=== PATIENT | female | born 1985 | race Caucasian/White ===

== ENCOUNTER 2023-07-30 09:13 | Emergency (ER) | payer MEDICAID, SELFPAY ==
[2023-07-30 09:20] VITALS: BP 108/77; PULSE 70; TEMP 36.6; O2SAT 98; BMI 34.2
--- NOTE | 2023-07-30 09:23 | XR_ITS ---
The [address] [address] Patient Name: SALAS OLEA MRN: [id number] date: 1985 Sex: F Assigned Patient Location: ER Current Patient Location: ED.MAIN Accession/Order Number: [id number] Exam Date: 07/30/2023 09:40 Report Date: 07/30/2023 09:54 At the request of: NICOLAS PRINCE Procedure: XR chest 2V EXAMINATION: XR chest 2V HISTORY: upper back pain COMPARISON: No relevant comparison available. TECHNIQUE: PA and lateral FINDINGS: LUNGS: No significant pulmonary parenchymal abnormalities. VASCULATURE: No increased pulmonary vasculature. PLEURA: No pneumothorax, effusion, or pleural thickening. CARDIAC: No cardiomegaly or cardiac silhouette abnormality. MEDIASTINUM: No visible mass or adenopathy. BONES: No fracture or visible bone lesion. OTHER: Negative. XR/XR chest 2V IMPRESSION: No acute cardiopulmonary process Electronically authenticated by: SARAH PRABHAKAR Date: 07/30/2023 09:54
--- NOTE | 2023-07-30 09:23 | ECG_ITS ---
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
[2023-07-30 09:28] VITALS: PULSE 68
--- NOTE | 2023-07-30 10:16 | ED_ITS ---
HPI HPI - General Adult General Chief complaint: Extremity Injury, Upper Stated complaint: LEFT SHOULDER PAIN Time Seen by Provider: 07/30/23 09:19 Source: patient Mode of arrival: walk-in Limitations: no limitations History of Present Illness HPI narrative: 37-year-old female to the emergency department with chief complaint of left- sided upper back pain. Patient reports she has pain worse with movement of her upper extremity in her upper back. Has been ongoing for 2-3 days. There is no associated numbness or weakness, tingling. Occasionally she gets sharp shooting pains down her arm. No exertional component. No shortness of breath. No chest pain. The Character of the pain is sharp. No falls or injuries. She denies . Related Data Previous Rx's ?Medication ?Instructions ?Recorded cyclobenzaprine 10 mg tablet 10 mg PO BID PRN muscle spasm #10 07/30/23 tabs methylprednisolone 4 mg tablets in 4 mg PO DAILY #21 ea 07/30/23 a dose pack (Medrol (Dave)) Allergies Allergy/AdvReac Type Severity Reaction Status Date / Time Penicillins Allergy Severe Anaphylaxis Verified 07/30/23 09:20 Opioid HPI Opioid Management Most Recent Opioid Data: Last Pain Scale 7 07/30/23 09:31 Review of Systems ROS Status of ROS 10 or more systems reviewed and unremark able except as noted in history and below Exam Narrative Exam Narrative: VITALS: I have reviewed the triage vital signs. GENERAL: Well developed, well appearing adult in no acute distress. NEURO: Alert and oriented. Moves all extremities. Face is symmetric and expressive. EYES: PERRL. No scleral icterus or conjunctival injection. No discharge. HENT: Normocephalic, atraumatic. Hearing is grossly intact. Nares grossly patent and without discharge. Mucous membranes moist. NECK: No JVD. Patient moves neck without restriction. CARDIO: Rhythm regular. Normal rate. No murmur, rub, or gallop. Pulses equal bilaterally in the upper and lower extremity. No lower extremity edema. PULM: Lungs clear to auscultation in all germain. No wheezes, rales, or rhonchi. No conversational dyspnea. No splinting, stridor, or accessory muscle use. EXTREMITIES: Symmetric muscle bulk. No joint swelling. No clubbing, cyanosis, or deformity. Increased tone and some tenderness in the upper trapezius on the left. SKIN: Warm and dry. Normal turgor. No rash or lesions appreciated. PSYCH: Mood, affect, and interaction is appropriate to the setting. Constitutional Vital Signs, click to edit/add: Last Vital Signs Temp 98 F 07/30/23 09:20 Pulse 70 07/30/23 09:20 Resp 16 07/30/23 09:20 BP 108/77 07/30/23 09:20 Pulse Ox 98 07/30/23 09:20 O2 Del Method Room Air 07/30/23 09:20 Course Vital Signs Vital signs: Vital Signs Temperature 98 F 07/30/23 09:20 Pulse Rate 70 07/30/23 09:20 Respiratory Rate 16 07/30/23 09:20 Blood Pressure 108/77 07/30/23 09:20 Pulse Oximetry 98 07/30/23 09:20 Oxygen Delivery Method Room Air 07/30/23 09:20 Temperature 98 F 07/30/23 09:20 Pulse Rate 70 07/30/23 09:20 Respiratory Rate 16 07/30/23 09:20 Blood Pressure 108/77 07/30/23 09:20 Pulse Oximetry 98 07/30/23 09:20 Oxygen Delivery Method Room Air 07/30/23 09:20 Medical Decision Making MDM Narrative Medical decision making narrative: 37-year-old female to the emergency department complaining of left-sided back pain. Medical stable, the patient is afebrile. Clinically there is increased tone and tenderness in the left upper trap muscle. Pain is exacerbated by movement of the left upper extremity or shrugging shoulders.Left upper extremity is neurovascularly intact. Cardiopulmonary examination is unremarkable. Chest x- ray and EKG are ordered. Patient agrees with this plan. Chest x-ray and EKG are without acute findings. Discuss treatment plan the patient. Medrol Dosepak, Zyrtec, she'll continue taking ibuprofen as needed home. She declines any medication here That she intends to drive home. Return precautions were discussed. All questions were answered. The patient was discharged home. Medical Records Medical records reviewed: Yes I reviewed the patient's medical records Imaging Data Chest x-ray: Attestation: I have reviewed the pertinent imaging results. Radiologist's impression: ITS Impressions Chest X-Ray 07/30/23 09:23 IMPRESSION: No acute cardiopulmonary process Electronically authenticated by: SARAH PRABHAKAR Date: 07/30/2023 09:54 ECG Data Attestation: I personally reviewed and interpreted this ECG as follows: (Normal sinus rhythm at a rate of 68. QTC 395. No STEMI.) Discharge Plan Discharge Stand Alone Forms: Portal Instructions Chief Complaint: Extremity Injury, Upper Clinical Impression: Muscle strain Patient Disposition: Home, Self-Care Time of Disposition Decision: 10:11 Condition: Good Mode of Transportation: Private Vehicle Prescriptions / Home Meds: New cyclobenzaprine 10 mg tablet 10 mg PO BID PRN (Reason: muscle spasm) Qty: 10 0RF methylprednisolone [Medrol (Dave)] 4 mg tablets,dose pack 4 mg PO DAILY Qty: 21 0RF Rx Instructions: TAKE PER DOSEPAK INSTRUCTIONS Print Language: Jordanian Instructions: Back Pain (ED) Additional Instructions: Follow-up with your doctor in the next week to ensure that your symptoms are resolved. Should your symptoms worsen or he develop chest pain, shortness of breath, numbness, weakness, tingling return to the emergency department immediately for evaluation. Referrals: Physician,Non-Staff, MD [Primary Care Provider] - 1 week
[2023-07-30 10:37] VITALS: BP 102/68; PULSE 69; O2SAT 97
== END 2023-07-30 10:41 | disposition home or self-care (01) ==
PROVIDERS: Emergency Provider Student in an Organized Health Care Education/Training Program
DX: T14.8XXA Other injury of unspecified body region, initial encounter (principal)
CPT/HCPCS: 71046; 93005; 99284

== ENCOUNTER 2024-04-13 08:42 | Emergency (ER) | payer MEDICAID, SELFPAY ==
[2024-04-13 08:51] VITALS: BP 131/78; PULSE 79; TEMP 37.3; O2SAT 96; BMI 34.4
--- NOTE | 2024-04-13 09:08 | XR_ITS ---
[address] [address] Patient Name: SALAS OLEA MRN: [id number] date: 1985 Sex: F Assigned Patient Location: ER Current Patient Location: ER Accession/Order Number: [id number] Exam Date: 04/13/2024 09:15 Report Date: 04/13/2024 09:31 At the request of: CHANO MOORE Procedure: XR chest 1V EXAM: XR chest 1V HISTORY: cough COMPARISON: None FINDINGS/IMPRESSION: 1. Lungs are clear 2. No pneumothorax. No pleural effusion. 3. Heart size and mediastinal contours are normal 4. No acute osseous abnormality. 5. Upper abdominal bowel gas pattern is nonspecific. Electronically authenticated by: DINORA HITCHCOCK Date: 04/13/2024 09:31
--- NOTE | 2024-04-13 09:27 | ED.GENADUL1 ---
HPI HPI - General Adult General Chief complaint: Upper Respiratory Infection Stated complaint: COUGH Time Seen by Provider: 04/13/24 09:00 Source: patient Mode of arrival: walk-in Limitations: no limitations History of Present Illness HPI narrative: Patient has been exposed to her daughter who have similar symptoms and she was diagnosed with flu, is coming to us with a coughing and chest congestion No difficulty breathing no other complaints Related Data Previous Rx's ?Medication ?Instructions ?Recorded guaifenesin 600 mg tablet, 600 mg PO Q12H PRN cough #10 tabs 04/13/24 extended release 12 hr (Mucinex) Allergies Allergy/AdvReac Type Severity Reaction Status Date / Time Penicillins Allergy Severe Anaphylaxis Verified 04/13/24 08:51 Opioid HPI Opioid Management Most Recent Opioid Data: Last Pain Scale 7 07/30/23 09:31 07/30/23 Review of Systems ROS Status of ROS 10 or more systems reviewed and unremarkable except as noted in history and below PFSH PFSH Social History Little interest or pleasure in doing things: not at all Feeling down, depressed, or hopeless: not at all Exam Narrative Exam Narrative: Nurses notes and vital signs reviewed and patient is not hypoxic. General: Well-appearing and in no apparent distress. Skin: Warm, dry, no pallor noted. No rash. Head: Normocephalic, atraumatic. Neck: Supple, non-tender. Eye: Pupils are equal, round and EOMI. No scleral icterus. Ears, Nose, Mouth, and Throat: TM are clear, no nasal mucosal hypertrophy. Oral mucosa is moist, no posterior oropharynx erythema, uvula is mid-line Cardiovascular: Regular Rate and Rhythm without murmur, gallop or rub. Respiratory: Mild decrease in air entry in the right side compared to the left Lungs are clear to auscultation, no wheezing, rales or rhonchi Chest Wall: no tenderness Back: No midline thoracic or lumbar vertebral tenderness. No CVA tenderness Musculoskeletal: normal ROM, no calf or popliteal tenderness, no lower extremity edema/swelling GI: Abdomen is soft, non-distended. Normal bowel sounds. No masses appreciated. No tenderness to palpation. No rebound, guarding, or rigidity noted. Neurological: A&O x4. No cranial nerve dysfunction observed. No truncal ataxia. Moves all extremities. Sensation intact. Psychiatric: Cooperative and interactive. Normal mood and affect. Constitutional Vital Signs, click to edit/add: Last Vital Signs Temp 99.1 F 04/13/24 08:51 Pulse 79 04/13/24 08:51 Resp 18 04/13/24 08:51 BP 131/78 04/13/24 08:51 Pulse Ox 96 04/13/24 08:51 O2 Del Method Room Air 04/13/24 08:51 Course Vital Signs Vital signs: Vital Signs Temperature 99.1 F 04/13/24 08:51 Pulse Rate 79 04/13/24 08:51 Respiratory Rate 18 04/13/24 08:51 Blood Pressure 131/78 04/13/24 08:51 Pulse Oximetry 96 04/13/24 08:51 Oxygen Delivery Method Room Air 04/13/24 08:51 Temperature 99.1 F 04/13/24 08:51 Pulse Rate 79 04/13/24 08:51 Respiratory Rate 18 04/13/24 08:51 Blood Pressure 131/78 04/13/24 08:51 Pulse Oximetry 96 04/13/24 08:51 Oxygen Delivery Method Room Air 04/13/24 08:51 Medical Decision Making MDM Narrative Medical decision making narrative: Just to decrease in auscultation on the right side the patient had an x-ray of the chest showing no acute pathology Presentation mostly secondary to bronchitis she will just continue supportive care at home because of her exposure to her daughter have flu she mostly have flu too She already denied taking Tamiflu for her daughter and that goes for her too The patient is to follow up with primary care physician in next 2-3 days or to return to the emergency department should any of the signs or symptoms worsen or new symptoms develop. The patient agrees with the following Diagnosis and Treatment plan and the patient will be discharged home. Discharge Plan Discharge Chief Complaint: Upper Respiratory Infection Clinical Impression: Flu, Bronchitis Patient Disposition: Home, Self-Care Time of Disposition Decision: 09:41 Condition: Good Prescriptions / Home Meds: New guaifenesin [Mucinex] 600 mg tablet extended release 12hr 600 mg PO Q12H PRN (Reason: cough) Qty: 10 0RF Print Language: Peruvian Instructions: Acute Bronchitis (ED) Referrals: Physician,Non-Staff, MD [Primary Care Provider] - 1 week
== END 2024-04-13 09:47 | disposition home or self-care (01) ==
PROVIDERS: Emergency Provider Emergency Medicine
DX: J11.1 Influenza due to unidentified influenza virus with other respiratory manifestations (principal)
CPT/HCPCS: 71045; 99283

== ENCOUNTER 2024-07-09 09:19 | Emergency (ER) | payer MEDICAID, SELFPAY ==
[2024-07-09 09:23] VITALS: BP 125/87; PULSE 80; TEMP 36.6; O2SAT 100; BMI 34.4
--- NOTE | 2024-07-09 09:24 | ED_ITS ---
HPI HPI - General Adult General Chief complaint: Nausea/Vomiting/Diarrhea Stated complaint: DIARRHEA, VOMITING, LOWER BACK PAIN Time Seen by Provider: 07/09/24 09:21 History of Present Illness HPI narrative: Patient is a 38yo who is presenting with chief complaint of nausea, vomiting, mild loose stool/diarrhea since midnight. Nothing unusual to eat or drink yesterday. Patient has no chest pain or shortness of breath. No headache. No neck pain. Patient is having aching to left lower back. Patient does not have her gallbladder, she does have her appendix. Patient had a hysterectomy. Patient was treated for UTI with trace E. coli several weeks ago with an antibiotic that she has finished of [employer] Patient has no urinary frequency urgency or burning. No hematuria. Patient thinks that she had soft stool a few days ago, but she cannot remember. Patient is has not done any heavy lifting twisting turning. Patient works at [employer]. No other acute complaints. No rash. All systems are negative except as noted/marked. All systems reviewed and otherwise negative. Nurses note and vital signs reviewed and patient is not hypoxic. General: The patient appears mild distress secondary to discomfort and pain, slight increased respiratory rate, possible underlying subconscious anxiety,. Patient is resting uncomfortably on cart. Patient is not toxic, lethargic, or listless Skin: Warm, dry, no pallor noted. There is no rash noted. No petechiae, purpura. Head: Normocephalic, atraumatic Eye: Normal conjunctiva, no drainage, EOMI. PERRL Ears, Nose, Mouth, and Throat: oral mucosa is moist. Nares patent. Mouth without vesicles. Cardiovascular: Regular Rate and Rhythm, no murmur, gallop, rub Respiratory: Patient is in no distress, slight increase in respiratory rate, no accessory muscle use, lungs are clear to auscultation, no wheezing, rales or rhonchi Back: Patient has mild tenderness superficially to left lower paralumbar soft tissue area, non-tender, no CVA tenderness bilaterally to percussion. No CT LS midline pain GI: Mild midepigastric tenderness to palpation, no flank pain bilateral, no peritoneal signs, abdomen is soft, no pain over McBurney's point, negative Cruz sign, no rash, otherwise no tenderness to palpation, no masses appreciated. No rebound, guarding, or rigidity noted. No distention Musculoskeletal: Patient has full range of motion of all of the extremities, no motor, sensory, or focal neurological deficits Neurological: A&O x4, normal speech Psychiatric: Cooperative Related Data Home Medications ?Medication ?Instructions ?Recorded ?Confirmed No Known Home Medications 07/09/24 07/09/24 Previous Rx's ?Medication ?Instructions ?Recorded dicyclomine 20 mg tablet 20 mg PO TID PRN abdominal pain #7 07/09/24 tabs ondansetron 4 mg disintegrating 4 mg PO Q4H PRN nausea and 07/09/24 tablet vomiting 3 days #6 tabs Allergies Allergy/AdvReac Type Severity Reaction Status Date / Time Penicillins Allergy Severe Anaphylaxis Verified 07/09/24 09:23 Opioid HPI Opioid Management Most Recent Opioid Data: Last Pain Scale 5 07/09/24 10:06 07/09/24 Last ED Pain Assessment 07/09/24 10:06 Last MAR Pain Assessment 07/09/24 09:45 PFSH PFSH Surgical History (Updated 07/09/24 @ 10:06 by Getachew Espino) Hx of hysterectomy ?Z90.710 - Acquired absence of both cervix and uterus (ICD-10) History of cholecystectomy ?Z90.49 - Acquired absence of other specified parts of digestive tract (ICD- 10) Social History Little interest or pleasure in doing things: not at all Feeling down, depressed, or hopeless: not at all Exam Constitutional Vital Signs, click to edit/add: Last Vital Signs Temp 97.8 F 07/09/24 09:23 Pulse 80 07/09/24 09:23 Resp 20 07/09/24 09:23 BP 125/87 07/09/24 09:23 Pulse Ox 100 07/09/24 09:23 O2 Del Method Room Air 07/09/24 09:23 Course Vital Signs Vital signs: Vital Signs Temperature 97.8 F 07/09/24 09:23 Pulse Rate 80 07/09/24 09:23 Respiratory Rate 20 07/09/24 09:23 Blood Pressure 125/87 07/09/24 09:23 Pulse Oximetry 100 07/09/24 09:23 Oxygen Delivery Method Room Air 07/09/24 09:23 Temperature 97.8 F 07/09/24 09:23 Pulse Rate 80 07/09/24 09:23 Respiratory Rate 20 07/09/24 09:23 Blood Pressure 125/87 07/09/24 09:23 Pulse Oximetry 100 07/09/24 09:23 Oxygen Delivery Method Room Air 07/09/24 09:23 Medical Decision Making MDM Narrative Medical decision making narrative: Patient seen and examined: Patient will be given IV fluids, IV Zofran, Toradol, Bentyl, lab work and urine. Patient had hysterectomy. Differential diagnosis includes but is not limited to: UTI, pyelonephritis, ovarian cyst, diverticulitis, nausea, vomiting, diarrhea, lumbar muscle skeletal pain Diagnostics and management: Patient will have laboratory studies Relevant laboratory interpretation: White blood cell count 11, no other significant electrolyte abnormality. Urine shows mild dehydration. Reevaluation: 1020 trying to obtain urine sample, will oral challenge patient 1050 patient feels much better after IV fluids. Patient tolerated popsicle and ice water no difficulty. Shared decision making: I discussed with the patient the necessary laboratory findings and radiological findings. Social barriers to healthcare: There are no food insecurities, there is no issue with transportation, there are no insurance barriers. Disposition: I discussed with the patient increasing fluids at home, Gatorade, Powerade, water. Patient was given prescription for Zofran and Bentyl if needed. Patient will follow-up with PCP. No questions at discharge. Lab Data Labs: Lab Results 07/09/24 07/09/24 Range/Units 09:30 10:28 WBC 11.4 H (4.0-11.0) 10^3/uL RBC 4.71 (4.20-5.40) 10^6/uL Hgb 14.6 (12.0-16.0) g/dL Hct 43.6 (36.0-48.0) % MCV 92.6 (81.0-99.0) fL MCH 31.0 (26.7-34.0) pg MCHC 33.5 (29.9-35.2) g/dL RDW 13.1 (11.0-15.0) % Plt Count 381 (150-450) 10^3/uL MPV 10.6 (9.5-13.5) fL Neut % (Auto) 86.4 H (43.0-75.0) % Lymph % (Auto) 8.2 L (20.5-60.0) % [place] % (Auto) 3.8 (1.7-12.0) % Eos % (Auto) 1.1 (0.9-7.0) % Baso % (Auto) 0.2 (0.2-2.0) % Neut # (Auto) 9.9 H (1.4-6.5) 10^3/uL Lymph # (Auto) 0.9 L (1.2-3.8) 10^3/uL [place] # (Auto) 0.4 (0.3-0.8) 10^3/uL Eos # (Auto) 0.1 (0.0-0.7) 10^3/uL Baso # (Auto) 0.0 (0.0-0.1) 10^3/uL Abs Immat Gran (auto) 0.03 (0.00-0.03) 10^3/uL Imm/Tot Granulo (auto) 0.3 (0.0-0.5) % Sodium 137 (136-145) mmol/L Potassium 4.0 (3.5-5.1) mmol/L Chloride 101 (98-107) mmol/L Carbon Dioxide 25.6 (21.0-32.0) mmol/L Anion Gap 14.4 BUN 16.0 (7.0-18.0) mg/dL Creatinine 0.92 (0.55-1.02) mg/dL Est GFR ( Amer) >60 (>=60 mL/min/1.73m^2) Est GFR (Non-Af Amer) >60 (>=60 mL/min/1.73m^2) BUN/Creatinine Ratio 17.4 Glucose 117 H (74-106) mg/dL Calcium 9.5 (8.5-10.1) mg/dL Total Bilirubin 0.7 (0.2-1.0) mg/dL AST 22 (15-37) U/L ALT 23 (14-59) U/L Alkaline Phosphatase 91 (46-116) U/L Total Protein 8.5 H (6.4-8.2) g/dL Albumin 4.4 (3.4-5.0) g/dL Globulin 4.1 g/dL Albumin/Globulin Ratio 1.1 Lipase 23.0 (16.0-77.0) U/L Urine Color Yellow (YELLOW) Urine Clarity Clear (CLEAR) Urine pH 6.0 (5.0-9.0) Ur Specific [place] 1.020 (1.005-1.025) Urine Protein Trace (NEG/TRACE) mg/dL Urine Glucose (UA) Negative (NEGATIVE) mg/dL Urine Ketones 40 A (NEGATIVE) mg/dL Urine Occult Blood Negative (NEGATIVE) Urine Nitrite Negative (NEGATIVE) Urine Bilirubin Negative (NEGATIVE) Urine Urobilinogen 0.2 (0.2-1.0) EU/dL Ur Leukocyte Esterase Negative (NEGATIVE) Urine RBC 2-5 A (0-2) #/HPF Urine WBC 0-2 A (NONE SEEN) #/HPF Ur Squamous Epith Cells Few A (NONE/RARE) #/LPF Urine Crystals None seen (None Seen) #/HPF Urine Bacteria Small A (NONE SEEN) #/HPF Urine Casts None seen (NONE SEEN) #/LPF Urine Mucus Large A (NONE SEEN) Ur Culture Indicated? Yes-[facility] [place] Discharge Plan Discharge Stand Alone Forms: Work/School Release Chief Complaint: Nausea/Vomiting/Diarrhea Clinical Impression: Nausea & vomiting, Diarrhea, Left lumbar pain, Dehydration, mild Patient Disposition: Home, Self-Care Time of Disposition Decision: 10:50 Condition: Fair Prescriptions / Home Meds: New dicyclomine 20 mg tablet 20 mg PO TID PRN (Reason: abdominal pain) Qty: 7 0RF ondansetron 4 mg tablet,disintegrating 4 mg PO Q4H PRN (Reason: nausea and vomiting) 3 Days Qty: 6 0RF No Action No Known Home Medications Print Language: Indonesian Instructions: Dehydration (ED), Acute Nausea and Vomiting (ED), Acute Diarrhea (ED) Additional Instructions: Increase fluids at home, Gatorade, Powerade, water. Use Zofran as needed for nausea vomiting, use Bentyl as needed for abdominal cramping. Alternate Tylenol and either Motrin, Advil, or ibuprofen every 4 hours to help with pain. Maximum dose of Tylenol is 3000 mg a day. Maximum dose of either Motrin, Advil, or ibuprofen is 2400 mg a day. Follow-up with PCP for any other concerns, return back to the ER if you are having intractable nausea, vomiting, pain, or any other acute concerns. Referrals: Physician,Non-Staff, MD [Physician] - 1 week
--- OUTSIDE RECORDS SUMMARY | 2024-07-09 09:26 | XMS_ITS | CCD ---
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 Role Phone SHAMMO, TEJAL Admitting Unavailable SHAMMO, TEJAL Attending Unavailable [facility] Primary Care Unavailable SHAMMO, TEJAL Consulting Unavailable Tosin Redman Unavailable Barbie Toure Unavailable Neema Mcfarlane Unavailable NON STAFF Primary Care Provider UnavailRagini Lassiter DO Attending Provider SERVICES, [facility] Care Unava ilable CHEHADE GABRIELA E Attending Unavailable [facility] Care Unava ilable CHEHADE, GABRIELA E Attending Unavailable Ragini Weston Attending Unavailable Ragini Weston Admitting Unavailable NON STAFF Primary Care Unavailable Allergies Allergy Classification Reported Allergen(s) Allergy Type Date of Onset Reaction(s) Facility (2 sources) Penicillins; Translations: [PENICILLINS] Drug allergy (disorder) 06-19-[address] [facility] Repository (4 sources) Penicillin G Drug Allergy [facility] Other (1 source) Penicillin Drug Allergy 06-01-2024 [facility] Repository Medications Current Medications Medication Drug Class(es) Dates Sig (Normalized) Sig (Original) cyclobenzaprine hydrochloride 10 mg oral tablet (1 source) Muscle Relaxant Start: 09-25-2022 methylPREDNISolone 4 mg oral tablet (1 source) Corticosteroid Start: 11-01-2022 Medrol 4 MG as directed Orally as directed for 6 days Oct, Active naproxen 500 mg oral tablet (2 sources) Nonsteroidal Anti-inflammatory Drug Start: 09-25-2022 take 1 tablet by mouth every twelve hours at mealtime as needed Naproxen 500 MG 1 tablet with food or milk as needed Orally every 12 hrs for 10 days Aug, Active [place] (No Known Home Meds) (1 source) Start: 06-01-2024 [place] (No Known Home Meds) Active June 01, 2024 1:00am predniSONE 20 mg oral tablet (1 source) Start: 06-27-2022 take 1 tablet by mouth every twelve hours predniSONE 20 MG 1 tablet Orally 2 times a day for 5 day(s) Jun, Active Completed/Discontinued Medications Medication Drug Class(es) Dates Sig (Normalized) Sig (Original) azithromycin 250 mg oral tablet (2 sources) Macrolide Antimicrobial Start: 07-07-2023 End: 05-24-2024 take 2 tablets by mouth once daily, then take 1 tablet by mouth once daily Azithromycin (Zithromax Z-Dave) 250 mg tablet Discontinued 250 MG PO Daily 6 July 07, 2023 12:00am May 24, 2024 11:07am take 2 tabs today and 1 daily for the next 4 days Start: 11-01-2022 Azithromycin 2 50 MG 2 tablet on the first day, then 1 tablet daily for 4 days Orally Once a day for 5 day(s) Oct, Active cefdinir 300 mg oral capsule (2 sources) Cephalosporin Antibacterial Start: 07-07-2023 End: 05-24-2024 take 1 capsule by mouth twice daily Cefdinir 300 mg capsule Discontinued 300 MG PO Twice daily 14 July 07, 2023 12:00am May 24, 2024 11:07am hydrocortisone 10 mg/ml / neomycin 3.5 mg/ml / polymyxin b 62161 unt/ml otic suspension (2 sources) Aminoglycoside Antibacterial, Polymyxin-class Antibacterial, Corticosteroid Start: 07-07-2023 End: 05-24-2024 Neomycin-Polymyxi n-Hc 3.5-10,000-1 mg/mL-unit/mL-% drops,suspension Discontinued 3 DROPS OTIC Three times daily July 07, 2023 12:00am May 24, 2024 11:07am right ear polymyxin b 96085 unt/ml / trimethoprim 1 mg/ml ophthalmic solution (2 sources) Dihydrofolate Reductase Inhibitor Antibacterial, Polymyxin-class Antibacterial Start: 07-23-2022 Start: 07-23-2022 take 1 drop(s) into the eye(s) every three hours Polytrim 64517-7.1 UNIT/ML 1 drop into affected eye Ophthalmic every 3 hours while awake for 7 Jun, Active Sod Picosulf-Mag Ox-Citric A c (1 source) Start: 05-24-2024 End: 06-01-2024 Sod Picosulf-Mag Ox-Citric A c (Clenpiq) 10 mg-3.5 gram- 12 gram/175 mL solution Discontinued 175 ML PO Daily 350 1 May 24, 2024 1:00am June 01, 2024 11:00am take first dose at 3:00 PM followed by four 8oz glasses of liquid take second dose at 9:00 PM followed by 3 8oz glasses of liquid Problems Active Problems Problem Classification Problem Date Documented Da te Episodic/Chronic Allergic reactions (1 source) Unspecified contact dermatitis, unspecified cause Episodic Gastrointestinal hemorrhage (1 source) Gastrointestinal hemorrhage Onset: 4 Genitourinary symptoms and ill-defined conditions (1 source) Urinary frequency Onset: 5 Episodic Inflammation; infection of eye (except that caused by tuberculosis or sexually transmitteddisease) (1 source) Other mucopurulent conjunctivitis, left eye Episodic Other ear and sense organ disorders (4 sources) Otitis externa of left ear; Translations: [Unspecified otitis externa, left ear] Chronic Other gastrointestinal disorders (1 source) Constipation alternates with diarrhea; Translations: [Other specified symptoms and signs involving the digestive system and abdomen] 05-24-2024 Episodic Other gastrointestinal disorders (1 source) Chronic constipation with overflow; Translations: [Other constipation] 05-24-2024 Episodic Other gastrointestinal disorders (1 source) Disorder of gastrointestinal tract; Translations: [Other specified diseases of the digestive system] 05-24-2024 Episodic Other gastrointestinal disorders (1 source) Other constipation; Translations: [Constipation, unspecified] 05-24-2024 Episodic Other gastrointestinal disorders (1 source) Other specified diseases of the digestive system; Translations: [Other specified disorders of intestine] 05-24-2024 Episodic Other gastrointestinal disorders (1 source) Constipation, unspecified; Translations: [Constipation, unspecified] Onset: 5 Episodic Other upper respiratory infections (5 sources) Acute pharyngitis, unspecified; Translations: [ACUTE PHARYNGITIS UNSPECIFIED] Onset: 3 Episodic Residual codes; unclassified (1 source) Family history of diverticulitis of colon; Translations: [Family history of other diseases of the digestive system] 05-24-2024 Episodic Sprains and strains (1 source) Strain of other muscles, fascia and tendons at shoulder and upper arm level, left arm, initial encounter Episodic Viral infection (1 source) Viral infection, unspecified; Translations: [VIRAL INFECTION UNSPECIFIED] Onset: 3 Episodic Past or Other Problems Problem Classification Problem Date Documented Da te Episodic/Chronic Gastritis and duodenitis (1 source) Acute gastritis without bleeding; Translations: [Acute gastritis without bleeding] Onset: 02-22-2024 Episodic Gastrointestinal hemorrhage (3 sources) Hematochezia; Translations: [Melena] Onset: 02-22-2024 05-24-2024 Episodic Nausea and vomiting (2 sources) Vomiting, unspecified; Translations: [Vomiting] Onset: 02-22-2024 Episodic Ovarian cyst (1 source) Unspecified ovarian cyst, unspecified side; Translations: [Unspecified ovarian cyst, unspecified side] Onset: 02-22-2024 Episodic Urinary tract infections (1 source) Acute cystitis without hematuria; Translations: [Acute cystitis without hematuria] Onset: 01-07-2021 Episodic Results Test Name Value Interpretation Reference Range Facility HCG ( test) Ql (U)o n 06-20-2024 Beta HCG ( test) Ql (U) Negative Normal NEG [facility] Comment on above: Performed By: #### 2 106-3 #### [facility] ([id number]) [address] [place] [address], [place] [address] URINE CULTUREon 06-20-2024 Bacteria identified Cx Nom (U) CULTURE RESULTS >100,000 ORGANISMS/mL ESCHERICHIA COLI [ S = SUSCEPTIBLE R = RESISTANT I = INTERMEDIATE S-DO = Susceptible-dose dependent NS = Non-suscceptible NO = No Interpretation ] Organism: ESCHERICHIA COLI Antibiotic Interpretation RICCARDO Status AMPICILLIN R >=32 F AMP/SULBACTAM R >=32/16 F CEFAZOLIN (non urinary) R 8 F CEFAZOLIN (urinary) S 8 F CEFTRIAXONE S <=0.25 F CIPROFLOXACIN S <=0.06 F GENTAMICIN R >=16 F LEVOFLOXACIN S <=0.12 F NITROFURANTOIN S <=16 F PIPERACIL/TAZOBACTAM S <=4 F TRIMETH/SULFAMETHOXA ZOLE R >=16/304 F Resistant [facility] Comment on above: Performed By: #### 6 30-4 #### [facility] ([id number]) [address] [place] [address], [address] [place] [address] URN MACROSCOPIC NURon 2024 BILIRUBIN [place] Negative Normal NEG [facility] Comment on above: Performed By: #### N UM #### [facility] ([id number]) [address] [place] [address]30 BLOOD/HGB [place] Trace Abnormal NEG [facility] Comment on above: Performed By: #### N UM #### [facility] ([id number]) [address] [place] [address] 22793 GLUCOSE [place] Negative Normal NEG [facility] Comment on above: Performed By: #### N UM #### [facility] ([id number]) [address] [place] [address] 26193 KETONES [place] Negative Normal NEG [facility] Comment on above: Performed By: #### N UM #### [facility] ([id number]) [address] [place] [address] 94220 LEUKOCYTE ESTERASE [place] Small Abnormal NEG [facility] Comment on above: Performed By: #### N UM #### [facility] ([id number]) [address] [place] [address] 77048 NITRITE [place] Negative Normal NEG [facility] Comment on above: Performed By: #### N UM #### [facility] ([id number]) [address] [place] [address] 70254 PH [place] 5.5 Normal 5.0-8.5 [facility] Comment on above: Performed By: #### N UM #### [facility] ([id number]) [address] [place] [address] 78380 PROTEIN [place] Negative Normal NEG [facility] Comment on above: Performed By: #### N UM #### [facility] ([id number]) [address] [place] [address] 10895 SPECIFIC GRAVITY [place] 1.020 Normal 1.003-1.035 [facility] Comment on above: Performed By: #### N UM #### [facility] ([id number]) [address] [place] [address] 80778 UROBILINOGEN [place] 0.2 eu/dL Normal <1.1 [facility] Comment on above: Performed By: #### N UM #### [facility] ([id number]) [address] [place] [address] 58003 CBC AND AUTO DIFFon 02-22-20 24 ABSOLUTE BASOPHIL 0.0 X10E9/L Normal 0.0-0.2 [facility] Comment on above: Performed By: #### C BCA, CMP #### [facility] ([id number]) [address] [place] [address] 90703 ABSOLUTE NEUTROPHIL 13.2 X10E9/L High 1.5-6.6 [facility] Comment on above: Performed By: #### C BCA, CMP #### [facility] ([id number]) [address] [place] [address] 95704 Basophils/100 WBC (Bld) 0.2 % Normal [facility] Comment on above: Performed By: #### C BCA, CMP #### [facility] ([id number]) [address] [place] [address] 35584 Eosinophils (Bld) [#/Vol] 0.1 10*3/uL Normal 0.0-0.4 [facility] Comment on above: Performed By: #### C BCA, CMP #### [facility] ([id number]) [address] [place] [address] 11399 Eosinophils/100 WBC (Bld) 0.7 % Normal [facility] Comment on above: Performed By: #### C BCA, CMP #### [facility] ([id number]) [address] [place] [address] 69933 Erythrocyte distribution width (RBC) [Ratio] 13.7 % Normal 11.5-15.0 [facility] Comment on above: Performed By: #### C DEEPAK, CMP #### [facility] ([id number]) [address] [place] [address] 05980 Hematocrit (Bld) [Volume fraction] 43.0 % Normal 35-47 [facility] Comment on above: Performed By: #### C DEEPAK, CMP #### [facility] ([id number]) [address] [place] [address] 08621 Hemoglobin (Bld) [Mass/Vol] 14.5 g/dL Normal 11.7-15.5 [facility] Comment on above: Performed By: #### C DEEPAK, CMP #### [facility] ([id number]) [address] [place] [address] 28778 Lymphocytes (Bld) [#/Vol] 1.3 10*3/uL Normal 1.0-3.5 [facility] Comment on above: Performed By: #### C DEEPAK, CMP #### [facility] ([id number]) [address] [place] [address] 32045 Lymphocytes/100 WBC (Bld) 8.6 % Normal [facility] Comment on above: Performed By: #### C BCA, CMP #### [facility] ([id number]) [address] [place] [address] 77236 MCH (RBC) [Entitic mass] 30.9 pg Normal 27-34 [facility] Comment on above: Performed By: #### C DEEPAK, CMP #### [facility] ([id number]) [address] [place] [address] 77875 MCHC (RBC) [Mass/Vol] 33.7 g/dL Normal 32-36 [facility] Comment on above: Performed By: #### C DEEPAK, CMP #### [facility] ([id number]) [address] [place] [address] 73126 MCV (RBC) [Entitic vol] 92 fL Normal 80-100 [facility] Comment on above: Performed By: #### C DEEPAK, CMP #### [facility] ([id number]) [address] [place] [address] 94831 Monocytes (Bld) [#/Vol] 0.6 10*3/uL Normal 0-0.9 [facility] Comment on above: Performed By: #### C DEEPAK, CMP #### [facility] ([id number]) [address] [place] [address] 54224 Monocytes/100 WBC (Bld) 4.1 % Normal [facility] Comment on above: Performed By: #### C DEEPAK, CMP #### [facility] ([id number]) [address] [place] [address] 95782 Neutrophils/100 WBC (Bld) 86.4 % Normal [facility] Comment on above: Performed By: #### C DEEPAK, CMP #### [facility] ([id number]) [address] [place] [address] 44877 Platelet mean volume (Bld) [Entitic vol] 9.3 fL Normal 7-12 [facility] Comment on above: Performed By: #### C BCA, CMP #### [facility] ([id number]) [address] [place] [address] 41478 Platelets (Bld) [#/Vol] 329 10*3/uL Normal 150-450 [facility] Comment on above: Performed By: #### C BCA, CMP #### [facility] ([id number]) [address] [place] [address] 88145 RBC COUNT 4.68 X10E12/L Normal 3.80-5.20 [facility] Comment on above: Performed By: #### C BCA, CMP #### [facility] ([id number]) [address] [place] [address] 65240 WBC (Bld) [#/Vol] 15.4 10*3/uL High 4.0-11.0 [facility] Comment on above: Performed By: #### C BCA, CMP #### [facility] ([id number]) [address] [place] [address] 50893 COMPREHENSIVE METABOLIC PANE [facility] 02-22-2024 Albumin [Mass/Vol] 5.1 g/dL Normal 3.2-5.3 [facility] Comment on above: Performed By: #### C BCA, CMP #### [facility] ([id number]) [address] [place] [address] 10582 ALP [Catalytic activity/Vol] 74 U/L Normal 39-130 [facility] Comment on above: Performed By: #### C BCA, CMP #### [facility] ([id number]) [address] [place] [address] 77544 ALT [Catalytic activity/Vol] 19 U/L Normal 0-31 [facility] Comment on above: Performed By: #### C BCA, CMP #### [facility] ([id number]) [address] [place] [address] 43003 Anion gap [Moles/Vol] 10 mmol/L Normal 5-15 [facility] Comment on above: Performed By: #### C BCA, CMP #### [facility] ([id number]) [address] [place] [address] 75221 AST [Catalytic activity/Vol] 21 U/L Normal 0-41 [facility] Comment on above: Performed By: #### C BCA, CMP #### [facility] ([id number]) [address] [place] [address] 84273 Bilirubin [Mass/Vol] 0.7 mg/dL Normal 0.3-1.2 [facility] Comment on above: Performed By: #### C BCA, CMP #### [facility] ([id number]) [address] [place] [address] 08808 Calcium [Mass/Vol] 9.7 mg/dL Normal 8.5-10.5 [facility] Comment on above: Performed By: #### C BCA, CMP #### [facility] ([id number]) [address] [place] [address] 63728 Chloride [Moles/Vol] 103 mmol/L Normal 98-109 [facility] Comment on above: Performed By: #### C BCA, CMP #### [facility] ([id number]) [address] [place] [address] 93342 CO2 [Moles/Vol] 21 mmol/L Low 22-32 [facility] Comment on above: Performed By: #### C BCA, CMP #### [facility] ([id number]) [address] [place] [address] 31375 Creatinine [Mass/Vol] 0.72 mg/dL Normal 0.40-1.00 [facility] Comment on above: Result Comment: METH OD TRACEABLE TO IDMS STANDARD Performed By: #### C BCA, CMP #### [facility] ([id number]) [address] [place] [address] 08278 eGFR (CKD-EPI) NON-RACE DEPENDENT >90 Normal >59 [facility] Comment on above: Result Comment: Reported eGFR is based on the CKD-EPI 2020 equation that does not use a race coefficient. Performed By: #### C BCA, CMP #### [facility] ([id number]) [address] [place] [address] 63245 Glucose [Mass/Vol] 103 mg/dL High 65-99 [facility] Comment on above: Performed By: #### C BCA, CMP #### [facility] ([id number]) [address] [place] [address] 41952 Potassium [Moles/Vol] 4.1 mmol/L Normal 3.5-5.0 [facility] Comment on above: Performed By: #### C BCA, CMP #### [facility] ([id number]) [address] [place] [address] 40960 Protein [Mass/Vol] 9.2 g/dL High 6.0-8.0 [facility] Comment on above: Performed By: #### C BCA, CMP #### [facility] ([id number]) [address] [place] [address] 72379 Sodium [Moles/Vol] 134 mmol/L Normal 134-146 [facility] Comment on above: Performed By: #### C BCA, CMP #### [facility] ([id number]) [address] [place] [address] 16432 Urea nitrogen [Mass/Vol] 16 mg/dL Normal 5-23 [facility] Comment on above: Performed By: #### C BCA, CMP #### [facility] ([id number]) [address] [place] [address] ABDOMEN AND PELVIS W CONT on 02-22-2024 CT ABDOMEN AND PELVIS W CONT CT ABDOMEN AND PELVIS W CONT CLINICAL INFORMATION: Abdominal pain, acute, nonlocalized TECHNIQUE: CT ABDOMEN AND PELVIS W CONT CT images of the abdomen and pelvis are obtained. Intravenous contrast administered. Images are reformatted in the sagittal and coronal planes.. Limited image lung bases are clear. Liver and spleen appear unremarkable. No pancreatic morphologic abnormality or peripancreatic infiltrate change. Portal and mesenteric vessels enhance normally. No hydronephrosis or obvious nephrolithiasis. Few fluid-filled loops small bowel noted without significant distention. Adrenals are symmetric. No free pelvic fluid. There is a 3.2 cm left adnexal cyst, likely ovarian. No colonic wall thickening. The appendix is not well-visualized. No pericecal inflammatory stranding. No obvious intraperitoneal or retroperitoneal lymphadenopathy. Osseous structures appear intact. Patient post cholecystectomy. IMPRESSION: No acute abdominal findings. All CT scans at this facility use dose modulation, iterative reconstruction, and/or weight based dosing when appropriate to reduce radiation dose to as low as reasonably achievable. Finalized by Erasto Kang MD on 02/22/2024 2:59 PM Normal [facility] HCG ( test) Ql (U)o n 02-22-2024 Beta HCG ( test) Ql (U) Negative Normal NEG [facility] Comment on above: Performed By: #### 2 106-3 #### [facility] ([id number]) [address] [place] [address] 81638 URN MACROSCOPIC NURon 2023 BILIRUBIN [place] Negative Normal NEG [facility] Comment on above: Performed By: #### N UM #### [facility] ([id number]) [address] [place] [address] 90519 BLOOD/HGB [place] Negative Normal NEG [facility] Comment on above: Performed By: #### N UM #### [facility] ([id number]) [address] [place] [address] 74388 GLUCOSE [place] Negative Normal NEG [facility] Comment on above: Performed By: #### N UM #### [facility] ([id number]) [address] [place] [address] 18343 KETONES B[place] 40 mg/dL Abnormal NEG [facility] Comment on above: Performed By: #### N UM #### [facility] ([id number]) [address] [place] [address] [place] [address] LEUKOCYTE ESTERASE [place] Negative Normal NEG [facility] Comment on above: Performed By: #### N UM #### [facility] ([id number]) [address] [place] [address] 91649 NITRITE [place] Negative Normal NEG [facility] Comment on above: Performed By: #### N UM #### [facility] ([id number]) [address] [place] [address] 68010 PH [place] 5.5 Normal 5.0-8.5 [facility] Comment on above: Performed By: #### N UM #### [facility] ([id number]) [address] [place] [address] 18678 PROTEIN [place] Trace Abnormal NEG [facility] Comment on above: Performed By: #### N UM #### [facility] ([id number]) [address] [place] [address] 14944 SPECIFIC GRAVITY [place] >=1.030 Normal 1.003-1.035 [facility] Comment on above: Performed By: #### N UM #### [facility] ([id number]) [address] [place] [address] 53480 UROBILINOGEN [place] 0.2 eu/dL Normal <1.1 [facility] Comment on above: Performed By: #### N UM #### [facility] ([id number]) [address] [place] [address] 81196 Quick Strepon 11-01-2022 S. pyogenes Org specific cx Ql (Throat) Positive [email or web address] [facility] [employer] Other Quick Strep [email or web address] [facility] [employer] Other CULTURE THROATon 05-28-2022 CULTURE THROAT Culture Observations: NORMAL RESPIRATORY RAMÍREZ. Normal [facility] Comment on above: Performed By: #### T HRTCX #### [facility] [address] [place] [address] Dr. Duke Gomez RESPIRATORY PANEL PLUSon Adenovirus Not detected Normal NOT DETECTED [facility] Comment on above: Performed By: #### R SPLUS #### [facility] [address] [place] [address] Dr. Duke Prescott Parapertusis Not detected Normal NOT DETECTED [facility] Comment on above: Performed By: #### R SPLUS #### [facility] [address] [place] [address] Dr. Duke Prescott Pertussis Not detected Normal NOT DETECTED [facility] Comment on above: Performed By: #### R SPLUS #### [facility] [address] [place] [address] Dr. Duke Gomez Chlamydia Pneumoniae Not detected Normal NOT DETECTED [facility] Comment on above: Performed By: #### R SPLUS #### [facility] [facility] [address] [place] [address] Dr. Duke Gomez Coronavirus 229E Not detected Normal NOT DETECTED [facility] Comment on above: Performed By: #### R SPLUS #### [facility] [address] [place] [address] Dr. Duke Gomez Coronavirus HKU1 Not detected Normal NOT DETECTED [facility] Comment on above: Performed By: #### R SPLUS #### [facility] [address] [place] [address] Dr. Duke Gomez Coronavirus NL63 Not detected Normal NOT DETECTED [facility] Comment on above: Performed By: #### R SPLUS #### [facility] [address] [place] [address] Dr. Duke Gomez Coronavirus OC43 Not detected Normal NOT DETECTED [facility] Comment on above: Performed By: #### R SPLUS #### [facility] [address] [place] [address] Dr. Duke Gomez Influenza A H1 Not detected Normal NOT DETECTED [facility] Comment on above: Performed By: #### R SPLUS #### [facility] [address] [place] [address] Dr. Duke Gomez Influenza A H1 2009 Not detected Normal NOT DETECTED [facility] Comment on above: Performed By: #### R SPLUS #### [facility] [address] [address] [address] Duke Gomez Influenza A H3 Not detected Normal NOT DETECTED [facility] Comment on above: Performed By: #### R SPLUS #### [facility] [address] [place] [address] Dr. Duke Gomez Influenza B Not detected Normal NOT DETECTED [facility] Comment on above: Performed By: #### R SPLUS #### [facility] [address] [place] [address] Dr. Duke Gomez Metapneumovirus Not detected Normal NOT DETECTED [facility] Comment on above: Performed By: #### R SPLUS #### [facility] [address] [place] [address] Dr. Duke Gomez Mycoplas. Pneumoniae Not detected Normal NOT DETECTED [facility] Comment on above: Performed By: #### R SPLUS #### [facility] [address] [place] [address] Dr. Duke Gomez Parainfluenza 1 Not detected Normal NOT DETECTED [facility] Comment on above: Performed By: #### R SPLUS #### [facility] [address] [place] [address] Dr. Duke Gomez Parainfluenza 2 Not detected Normal NOT DETECTED [facility] Comment on above: Performed By: #### R SPLUS #### [facility] [address] [place] [address] Dr. Duke Gomez Parainfluenza 3 Not detected Normal NOT DETECTED [facility] Comment on above: Performed By: #### R SPLUS #### [facility] [address] [place] [address] Dr. Duke Gomez Parainfluenza 4 Not detected Normal NOT DETECTED [facility] Comment on above: Performed By: #### R SPLUS #### [facility] [address] [place] [address] Dr. Duke Gomez Rhino/Enterovirus Not detected Normal NOT DETECTED [facility] Comment on above: Performed By: #### R SPLUS #### [facility] [address] [address] [address] Duke Gomez RP2 Header 1 RESPIRATORY PANEL: VIRUSES Normal [facility] Comment on above: Performed By: #### R SPLUS #### [facility] [address] [address] [address] Duke Gomez RP2 Header 2 RESPIRATORY PANEL: BACTERIA Normal [facility] Comment on above: Performed By: #### R SPLUS #### [facility] [address] [place] [address] Dr. Duke Gomez RSV Not detected Normal NOT DETECTED [facility] Comment on above: Performed By: #### R SPLUS #### [facility] [address] [place] [address] Dr. Duke Gomez SARS-CoV-2 (COVID-19) RNA LEONOR+probe Ql (Unsp spec) Not detected Normal NOT DETECTED [facility] Comment on above: Performed By: #### R SPLUS #### [facility] [address] [place] [address] Dr. Duke Gomez Vital Signs Date Time Vital Sign Value Performing Clinician Facility 06-13-2024 11:25-0400 Diastolic blood pressure 88 mm[Hg] [facility] 06-13-2024 11:25-0400 Heart rate 76 /min [facility] 06-13-2024 11:25-0400 Respiratory rate 20 /min [facility] 06-13-2024 11:25-0400 SaO2% (BldA) [Mass fraction] 100 % [facility] 06-13-2024 11:25-0400 Systolic blood pressure 130 mm[Hg] [facility] 06-13-2024 10:24-0400 Body height 152.4 cm [facility] 06-13-2024 10:24-0400 Body weight 56.7 kg [facility] 05-24-2024 10:05-0500 Body height 152.4 cm [facility] 05-24-2024 10:05-0500 Body mass index (BMI) [Ratio] 33 kg/m2 [facility] 05-24-2024 10:05-0500 Body weight 76.7 kg [facility] 07-07-2023 11:16-0400 Body height 152.4 cm [facility] 07-07-2023 11:16-0400 Body mass index (BMI) [Ratio] 33 kg/m2 [facility] 07-07-2023 11:16-0400 Body temperature 98.6 [degF] [facility] 07-07-2023 11:16-0400 Body weight 76.77 kg [facility] 07-07-2023 11:16-0400 Diastolic blood pressure 78 mm[Hg] [facility] 07-07-2023 11:16-0400 Heart rate 68 /min [facility] 07-07-2023 11:16-0400 Respiratory rate 16 /min [facility] 07-07-2023 11:16-0400 SaO2% (BldA) [Mass fraction] 98 % [facility] 07-07-2023 11:16-0400 Systolic blood pressure 110 mm[Hg] [facility] 11-01-2022 09:05-0400 Body height 152.4 cm Tosin Mendezmond Other [facility] 11-01-2022 09:05-0400 Body mass index (BMI) [Ratio] 31.75 kg/m2 Tosin Юлия Other [facility] 11-01-2022 09:05-0400 Body temperature 99.5 [degF] Tosin Mendezmond Other [facility] Other 11-01-2022 09:05-0400 Body weight 73.76 kg Tosin Mendezmond Other [facility] Other 11-01-2022 09:05-0400 Diastolic blood pressure 78 mm[Hg] Tosin Юлия Other [facility] Other 11-01-2022 09:05-0400 Respiratory rate 18 /min Tosin Redman Other [facility] Other 11-01-2022 09:05-0400 SaO2% (BldA) [Mass fraction] 97 % Tosin Redman Other [facility] Other 11-01-2022 09:05-0400 Systolic blood pressure 114 mm[Hg] Tosin Redman Other [facility] Other 09-25-2022 10:10-0400 Body height 152.4 cm Neema Mcfarlane Other [facility] Other 09-25-2022 10:10-0400 Body mass index (BMI) [Ratio] 31.44 kg/m2 Neema Mcfarlane Other [facility] Other 09-25-2022 10:10-0400 Body temperature 97.7 [degF] Neema Mcfarlane Other [facility] Other 09-25-2022 10:10-0400 Body weight 73.03 kg Neema Mcfarlane Other [facility] Other 09-25-2022 10:10-0400 Diastolic blood pressure 78 mm[Hg] Neema Mcfarlane Other [facility] Other 09-25-2022 10:10-0400 Respiratory rate 18 /min Neema Mcfarlane Other [facility] Other 09-25-2022 10:10-0400 SaO2% (BldA) [Mass fraction] 96 % Neema Mcfarlane Other [facility] Other 09-25-2022 10:10-0400 Systolic blood pressure 110 mm[Hg] Neema Mcfarlane Other [facility] Other 07-23-2022 14:50-0400 Body height 152.4 cm Barbie Toure Other [facility] Other 07-23-2022 14:50-0400 Body mass index (BMI) [Ratio] 30.66 kg/m2 Barbie Toure Other [facility] Other 07-23-2022 14:50-0400 Body temperature 98.4 [degF] Barbie Toure Other [facility] Other 07-23-2022 14:50-0400 Body weight 71.22 kg Barbie Toure Other [facility] Other 07-23-2022 14:50-0400 Respiratory rate 18 /min Barbie Toure Other [facility] Other 07-23-2022 14:50-0400 SaO2% (BldA) [Mass fraction] 99 % Barbie Toure Other [facility] Other 06-27-2022 11:30-0400 Body height 152.4 cm Tosin Redman Other [facility] Other 06-27-2022 11:30-0400 Body mass index (BMI) [Ratio] 34.17 kg/m2 Tosin Redman Other [facility] Other 06-27-2022 11:30-0400 Body temperature 98.8 [degF] Tosin Redman Other [facility] Other 06-27-2022 11:30-0400 Body weight 79.38 kg Tosin Redman Other [facility] Other 06-27-2022 11:30-0400 Diastolic blood pressure 78 mm[Hg] Tosin Redman Other [facility] Other 06-27-2022 11:30-0400 Respiratory rate 18 /min Tosin Redman Other [facility] Other 06-27-2022 11:30-0400 SaO2% (BldA) [Mass fraction] 98 % Tosin Redman Other [facility] Other 06-27-2022 11:30-0400 Systolic blood pressure 115 mm[Hg] Tosin Redman Other [facility] Other Encounters Encounter Date Encounter Type Care Provider Facility Start: 06-20-2024 End: 06-20-2024 Emergency department patient visit [facility] Start: 06-13-2024 Non-patient / Non-visit [facility] Physician [facility] Work Phone: Start: 06-13-2024 End: 06-13-2024 Admission to same day surgery center [facility] Work Phone: Start: 06-13-2024 End: 06-13-2024 ambulatory NON STAFF [facility] Work Phone: Start: 05-24-2024 End: 05-24-2024 Patient encounter procedure [facility] Physician [facility] Work Phone: Start: 02-22-2024 End: 02-22-2024 Emergency department patient visit [facility] Start: 07-07-2023 End: 07-07-2023 ambulatory [facility] Work Phone: Start: 07-07-2023 End: 07-07-2023 Patient encounter procedure [facility] Work Phone: Start: 11-01-2022 End: 11-01-2022 ambulatory Tosin Redman Other [facility] Other Start: 11-01-2022 Office outpatient visit 15 minutes Tosinalberto Redman [facility] Start: 09-25-2022 End: 09-25-2022 ambulatory Neema Mcfarlane Other [facility] Other Start: 09-25-2022 Office outpatient visit 15 minutes Neema Mcfarlane [facility] Start: 07-23-2022 End: 07-23-2022 ambulatory Barbie Toure Other [facility] Other Start: 07-23-2022 Office outpatient visit 15 minutes Barbie Toure [facility] Start: 06-27-2022 End: 06-27-2022 ambulatory Tosin Redman Other [facility] Other Start: 06-27-2022 Office outpatient visit 15 minutes Tosin Юлия [facility] Start: 05-28-2022 End: 05-28-2022 ambulatory [facility] Facility:H1 Procedures Date Procedure Procedure Detail Performing Clinician Start: 06-13-2024 Colonoscopy History of cholecystectomy Hx of cholecys tectomy Plan of Treatment Date Care Activity Detail Author Start: 06-13-2024 [facility] Patient Education Hemorrhoids ED Know your Meds [facility] Work Phone: Payers Date Payer Category Payer Self-pay 2022 Medicaid [id number] 1985 Unknown [id number] 1985 Unknown [id number] 1985 Unknown [id number] Unknown [id number] Social History Date Type Detail Facility Unknown if ever smoked [facility] Other Sex Assigned At Sex Assigned At Bir th [facility] Other Start: 07-07-2023 Tobacco smoking status COIS Never smoked tobacco (finding) [facility] Start: 1985 Sex Assigned At Female F [facility] Start: 06-13-2024 Tobacco smoking status COIS Ex-smoker (finding) [facility] Start: 06-13-2024 Sex Female (finding) [facility] Goals Date Patient Goal Desired Activity /State Clinical Notes 06-27-2022 to 06-13-2024 Note Date & Type Note Facility 06-13-2024 Procedure note [facility] 06-13-2024 History and physi adele note [facility] enter 05-24-2024 Evaluation note Diagnosis Onset Date Resolution Blood in stool acute April 302024 9:51am Chronic constipation with overflow acute May 24 9:51am Gas bloat syndrome acute 2024 9:51am [facility] Work Phone: 1(554) 163-410608-06-2023 Evaluation note* Encounter Date Diagnosis Assessment Notes Treatment Notes Treatment Clinical Notes Oct, Sore throat (ICD-10 - J02.9) Strep throat material was printed Drink plenty fluids, get plenty of rest. Take the azithromycin and the Medrol Dosepak as prescribed until gone. You may return to work on Wednesday. Take Tylenol or Motrin as needed for aches pains or fevers. Follow-up with your family physician if no improvement in 2 to 3 days [facility] Other 04-27-2023 Evaluation note* Encounter Date Diagnosis Assessment Notes Treatment Notes Treatment Clinical Notes Jun, [place] eye disease of left eye (ICD-10 - H10.022) Pt to take meds as prescribed to affected eye/s. Pt to use warm compress as directed. Advised good hand washing. Wash pillow cases. Pt advised to avoid close contact with others due to the contagiousness of this. Pt to f/u with pcp as needed for persistent or worsening symptoms. Pt understood and agreed to treatment plan. [facility] Other 04-01-2023 Evaluation note* Encounter Date Diagnosis Assessment Notes Treatment Notes Treatment Clinical Notes Jun, Contact dermatitis, unspecified contact dermatitis type, unspecified trigger (ICD-10 - L25.9) Drink plenty fluids, get plenty of rest. Take the prednisone as prescribed until gone. Take [id number] Benadryl as needed for itching. Follow-up with your family physician as scheduled. Go to the ER for worsening symptoms or concerns Jun, Other Contact dermati tis home care material was printed [facility] Other Evaluation noteNort irisnote Other Evaluation noteNo assessment information available [facility] Work Phone: History and physical note Author Ragini Weston [facility] Note Date/Time June 13, 2024 10: 32am [facility] [address] [place] [address] Gastroenterology H&P Signed Patient: Shama Sahu MR#: [id number] : 1985 Acct:[id number] Age/Sex: 38 / F Adm Date: 5 Loc: Room: Type: [facility] Attending Dr: Ragini Weston DO Copies to: NON STAFF Ragini Weston DO~ Date of Service: 06/13/2024 HISTORY & PHYSICAL: Patient's history with special attention to the cardiovascular, pulmonary systems and the current problem was reviewed with the patient immediately prior to the procedure. Present medications and doses reviewed in the EMR. Allergies and pertinent laboratory tests were also reviewedat this time in the EMR. The physical examination, as below, was then performed. Indication, assessment and HPI: 38-year-old female who presents for colonoscopy for constipation and blood in stool. No prior colonoscopy. Family history of GI malignancy? No PHYSICAL EXAMINATION General appearance: cooperative, NAD Skin: No jaundice, no rash or lesions Head: NCAT Eyes: Anicteric Neck: Supple Lungs: Normal respiratory effort, no use of accessory muscles Abdomen: Soft, nondistended Neuro: No focal deficits, Ox3. REVIEW OF SYSTEMS Constitutional: Denies malaise, fevers Cardiovascular: Denies chest pain, palpitations Respiratory: Denies shortness of breath, wheezing Gastrointestinal: As per HPI Genitourinary: Denies dysuria, polyuria Musculoskeletal: Denies joint swelling, joint stiffness Neurological: Denies confusion, numbness, tingling Endocrine: Denies fatigue Written informed consent obtained from the patient. Risks (including but not limited to perforation, infection, bloating, bleeding, need for emergent surgeryand loss of life), benefits and alternatives explained and questions answered. The patient verbalized understanding. Based on history patient is an appropriate candidate for the procedure. Ragini Weston DO Present medication and doses reviewed in the EMR Documented By: Ragini Weston DO 06/13/24 1031 Signed By: <Electronically signed by Ragini Weston DO> 06/13/24 1032 [facility] Work Phone: History general Narrative - Reported* Type Description Date Surgical History C section x 3 Surgical History D&C Surgical History cholecystectomy Hospitalization History see above [facility] Other Summary Purpose Family History No Family History Records Found Relationship Condition Age at Onset Recorded Date/T diana Not Specified No pertinent family history Unknown Advance Directives No Advanced Directives Records Found Advance Directive Response Recorded Date/ Time Advance Directives No July 06 11:10am Chief Complaint and Reason for Visit Chief Complaint Ear pain Chief Complaint Admit Date Referred by Tosha Winslow: diarrhea F ebruary 2024 9:51am Diarrhea June 13, 2024 10: 12am Diarrhea June 13, 2024 10: 32am Reason for Visit Admit Date Blood in stool May 24, 2024 9:51am Chronic constipation with overflow Febru calista 2024 9:51am Gas bloat syndrome May 24, 2024 9:51am Additional Source Comments INFORMATION SOURCE (unrecogn ized section and content) DATE CREATED AUTHOR 06/02/2022 [facility] DATE CREATED AUTHOR AUTHOR'S ORGANIZ ATION 06/23/2024 [facility] DATE CREATED AUTHOR AUTHOR'S ORGANIZ ATION 06/24/2024 [facility] REASON FOR VISIT (unrecogniz ed section and content) RASH ON LEFTLEFT EYE IRRITAT ION, POSS PINK EYEstrep throat? Care Teams (unrecognized sec tion and content) Team Status: Active Member Role Status Dates NON STAFF Primary Care Provider Active Team Status: Inactive Member Role Status Dates NON STAFF Primary Care Provider Active Start: July 07, 2023 End: July 07, 2023 AIYANA Chaparro Attending Provider Active S tart: July 07, 2023 End: July 07, 2023 Team Status: Inactive Member Role Status Dates NON STAFF Primary Care Provider Active Start: May 24, 2024 End: May 24, 2024 Ragini L Ly , DO Attending Provider Active St art: May 24, 2024 End: May 24, 2024 Team Status: Inactive Member Role Status Dates NON STAFF Primary Care Provider Active Start: June 13, 2024 End: June 13, 2024 Ragini L Ly , DO Attending Provider Active St art: June 13, 2024 End: June 13, 2024 Team Status: Active Member Role Status Dates NON STAFF Primary Care Provider Active Start: June 13, 2024 Ragini L Ly , DO Attending Provider, Other Provider Active Start: June 13, 2024 Goals (unrecognized section and content) Goals may be documented in a n alternate section FOR RECORDS PERTAINING TO PATIENTS WHO ARE OR HAVE BEEN ENROLLED IN A CHEMICAL DEPENDENCY/SUBSTANCEABUSE PROGRAM, SOME INFORMATION MAY BE OMITTED. This clinical summary was aggregated from multiple sources. Caution should be exercised in using it in the provision of clinical care. This summary normalizes information from multiple sources, and as a consequence, information in this document may materially change the coding, format and clinical context of patient data. In addition, data may be omitted in some cases. CLINICAL DECISIONS SHOULD BE BASED ON THE PRIMARY CLINICAL RECORDS. [facility]. provides no warranty or guarantee of the accuracy or completeness of information in this document.
[2024-07-09] MEDS: ONDANSETRON PF 4 MG/2 ML VIAL IV (09:32)
[2024-07-09] MEDS: 0.9 % SODIUM CHLORIDE 1,000 ML 999 ML IV (09:32)
[2024-07-09 09:37] LABS: Basophils Percent Auto 0.2 % (0.2-2.0); Eosinophils Absolute Auto 0.1 10^3/uL (0.0-0.7); Eosinophils Percent Auto 1.1 % (0.9-7.0); Hematocrit 43.6 % (36.0-48.0); Hemoglobin 14.6 g/dL (12.0-16.0); Immature Granulocytes Abs Auto 0.03 10^3/uL (0.00-0.03); Immature Granulocytes Pct Auto 0.3 % (0.0-0.5); Lymphocytes Absolute Auto 0.9 10^3/uL (1.2-3.8); Lymphocytes Percent Auto 8.2 % (20.5-60.0); Mean Corpuscular HGB Conc 33.5 g/dL (29.9-35.2); Mean Corpuscular Volume 92.6 fL (81.0-99.0); Mean Platelet Volume 10.6 fL (9.5-13.5); Monocytes Absolute Auto 0.4 10^3/uL (0.3-0.8); Monocytes Percent Auto 3.8 % (1.7-12.0); Neutrophils Absolute Auto 9.9 10^3/uL (1.4-6.5); Neutrophils Percent Auto 86.4 % (43.0-75.0); Platelet Count 381 10^3/uL (150-450); Red Blood Count 4.71 10^6/uL (4.20-5.40); Red Cell Distribution Width 13.1 % (11.0-15.0); White Blood Count 11.4 10^3/uL (4.0-11.0)
[2024-07-09] MEDS: FAMOTIDINE/PF 20 MG/2 ML VIAL IV (09:45)
[2024-07-09] MEDS: KETOROLAC TROMETHAMINE 30 MG/ML VIAL 15 MG IVP (09:45)
[2024-07-09 09:58] LABS: Alanine Aminotransferase 23 U/L (14-59); Albumin Globulin Ratio 1.1; Albumin Level 4.4 g/dL (3.4-5.0); Alkaline Phosphatase 91 U/L (46-116); Anion Gap 14.4; Aspartate Amino Transferase 22 U/L (15-37); BUN Creatinine Ratio 17.4; Bilirubin Total 0.7 mg/dL (0.2-1.0); Calcium 9.5 mg/dL (8.5-10.1); Carbon Dioxide 25.6 mmol/L (21.0-32.0); Chloride 101 mmol/L (98-107); Estimated GFR (African America >60 (>=60 mL/min/1.73m^2); Estimated GFR (Non-African Ame >60 (>=60 mL/min/1.73m^2); Globulin 4.1 g/dL; Glucose 117 mg/dL (74-106); Sodium 137 mmol/L (136-145); Total Protein 8.5 g/dL (6.4-8.2)
[2024-07-09] MEDS: DICYCLOMINE HCL 20 MG/2 ML VIAL IM (10:14)
[2024-07-09 10:43] LABS: Bilirubin Urine NEGATIVE (NEGATIVE); Blood Urine NEGATIVE (NEGATIVE); Clarity Urine CLEAR (CLEAR); Color Urine YELLOW (YELLOW); Glucose Urine UA NEGATIVE (NEGATIVE); Ketones Urine 40 mg/dL (NEGATIVE); Leukocyte Esterase Urine NEGATIVE (NEGATIVE); Nitrite Urine NEGATIVE (NEGATIVE); Protein Urine TRACE mg/dL (NEG/TRACE); Urobilinogen Urine 0.2 EU/dL (0.2-1.0)
[2024-07-09 10:51] LABS: Bacteria Urine SMALL #/HPF (NONE SEEN); Cast Seen? NONE SEEN #/LPF (NONE SEEN); Crystals Seen? None Seen #/HPF (None Seen); Mucus Urine LARGE (NONE SEEN); Squamous Epithelial Cell Urine FEW #/LPF (NONE/RARE); Urine Culture Indicated YES-FRMC; WBC Urine 0-2 #/HPF (NONE SEEN)
[2024-07-09 10:58] VITALS: BP 119/77; PULSE 67; O2SAT 99
== END 2024-07-09 11:01 | disposition home or self-care (01) ==
PROVIDERS: Emergency Provider Emergency Medicine
DX: R11.2 Nausea with vomiting, unspecified (principal); R19.7 Diarrhea, unspecified; M54.50 Low back pain, unspecified; E86.0 Dehydration
CPT/HCPCS: 36415; 80053; 81001; 83690; 84703; 85025; 87086; 96361; 96372; 96374; 96375; 99284; J0500; J1885; J2405; J3490